=== PATIENT | male | born 1960 | race Caucasian/White ===

== ENCOUNTER 2020-10-17 01:09 | Day surgery (SDC) | payer BC, SELFPAY ==
[2020-10-03 15:53] VITALS: BMI 40.5
[2020-10-17 09:50] VITALS: BP 136/76; PULSE 61; RESP 20; TEMP 36.3; O2SAT 95
--- NOTE | 2020-10-17 09:56 | P.PNAN_ITS ---
Anes - Initial Pre Proc Eval Procedure: Operation Date: 10/17/20 10:45 Proposed Procedures p Esophagogastroduodenoscopy - Sagar Denise MD Date/Time: 10/17/20 09:56 Surgeon: Sagar Denise MD Pre Op Diagnosis: GERD, epigastric pain Patient Data Age: 60 Gender: M Height: 1.96 m Weight: 154 kg Last Vital Signs Temp 36.3 C L 10/17/20 09:50 Pulse 61 10/17/20 09:50 Resp 20 10/17/20 09:50 BP 136/76 10/17/20 09:50 Pulse Ox 95 10/17/20 09:50 Allergies Allergy/AdvReac Type Severity Reaction Status Date / Time No Known Allergies Allergy Unknown Verified 10/17/20 09:37 Home Medications Medication Instructions Recorded Confirmed Type aspirin 325 mg PO DAILY 10/03/20 10/17/20 History esomeprazole magnesium 20 mg PO DAILY 10/03/20 10/17/20 History famotidine 10 mg PO DAILY PRN 10/03/20 10/17/20 History Patient hx anesthesia problems: none Family hx anesthesia problems: none [facility] Past Medical History Medical History (Updated 10/17/20 @ 09:56 by Osiel Larsen MD) Atrial fibrillation AMBROCIO (obstructive sleep apnea) Family History Family History Grandparent Hypertension Cerebrovascular accident Father Malignant neoplasm of prostate Other Family history of cardiovascular disease Social History Social History Years smoked: 5 Smoking status: Former smoker Tobacco type: pipe Alcohol intake: current Alcohol use details: 6 DOUBLES ONCE A WEEK- PAST 3 MONTHS BACKING OFF DUE TO STOMACH ISSUES Substance use: never Substance use type: does not use Living arrangements: with family Spiritual care concerns: No Anes - Eval Final PreProcedure Day of Procedure 10/17/20 09:56 Patient weight: morbidly obese Heart: irregular rhythm Lungs: clear to auscultation Airway: Mallampati scale class II and special considerations poor dentition Neurological: alert and oriented Last oral intake: >/= 8 hours ASA classification: III Emergent: no Anesthetic plan: proceed Anesthesia type and monitoring: general GIVS and standard monitoring Informed Consent: The patient's anesthetic plan and its attendant risks and benefits were discussed with the patient/family/POA. Questions were solicited and answers provided to the satisfaction of the patient/family/POA.
[2020-10-17] MEDS: LACTATED RINGERS 1,000 ML 150 ML IV CONT (09:58)
--- NOTE | 2020-10-17 10:27 | PM.HPGS ---
History of Present Illness History of Present Illness Consent: Risks, benefits, and alternatives have been discussed and questions answered. Patient agrees to proceed with procedure. Chief complaint: GERD, epigastric pain Narrative: Sean Davis is a 60 year old male with gerd using nexium for 10 years but last 6 weeks with more heartburn, had EGD about 20 years ago. Review of Systems Constitutional: Constitutional: Denies headache(s) and Denies weakness Eyes: Eyes: Denies blurry vision ENT: Reports Normal hearing present, Denies headache(s) and Denies neck pain Cardiovascular: Cardiovascular: Denies chest pain and Denies dyspnea Respiratory: Respiratory: Denies dyspnea Gastrointestinal: Gastrointestinal: Reports no additional gastrointestinal complaints Genitourinary: Genitourinary: Denies dysuria Musculoskeletal: Musculoskeletal: Denies neck pain Integumentary/Breasts: Skin/Breast: Denies dry skin Neurologic: Reports Normal hearing present, Denies headache(s) and Denies weakness Psychiatric: Psychiatric: Denies anxiety Endocrine: Endocrine: Denies change in body appearance Hematologic/Lymphatic: Hematologic/Lymphatic: Denies easy bleeding Allergic/Immunologic: Allergic/Immunologic: Denies urticaria PMFSH Past Medical History Medical History (Updated 10/17/20 @ 09:56 by Osiel Larsen MD) Atrial fibrillation AMBROCIO (obstructive sleep apnea) Family History Family History Grandparent Hypertension Cerebrovascular accident Father Malignant neoplasm of prostate Other Family history of cardiovascular disease Social History Social History Years smoked: 5 Smoking status: Former smoker Tobacco type: pipe Alcohol intake: current Alcohol use details: 6 DOUBLES ONCE A WEEK- PAST 3 MONTHS BACKING OFF DUE TO STOMACH ISSUES Substance use: never Substance use type: does not use Living arrangements: with family Spiritual care concerns: No Meds Home Medications and Allergies Home Medications Medication Instructions Recorded Confirmed Type aspirin 325 mg PO DAILY 10/03/20 10/17/20 History esomeprazole magnesium 20 mg PO DAILY 10/03/20 10/17/20 History famotidine 10 mg PO DAILY PRN 10/03/20 10/17/20 History Allergies Allergy/AdvReac Type Severity Reaction Status Date / Time No Known Allergies Allergy Unknown Verified 10/17/20 09:37 Vital Signs Vital Signs - 24 hr 10/17/20 09:50 Temperature 97.4 F L Pulse Rate 61 Respiratory Rate 20 Blood Pressure 136/76 Pulse Oximetry 95 Exam Const: General: comfortable and no acute distress HENMT: General nose exam: Normal nares present Eyes: General: appearance normal, both eyes and all related structures Neck: Neck: no JVD Resp: Auscultation: clear to auscultation bilaterally Cardio: Rate: regular rate Rhythm: regular rhythm GI: Inspection: non-distended GI Palp: Yes Soft to palpation Skin: General skin exam: normal color Neuro: General: gait normal Speech: normal speech Extrem: General: normal to inspection Psych: Mental Status: mental status grossly normal Assessment and Plan Assessment and plan (1) GERD (gastroesophageal reflux disease): Code(s): K21.9 - Gastro-esophageal reflux disease without esophagitis Status: Acute Assessment and Plan: egd with bx
[2020-10-17] MEDS: BENZOCAINE (*SP) 60 ML SPRAY CAN (HURRICAINE) 1 SPRAY MUCOUS MEM (10:31)
[2020-10-17 10:44] VITALS: BP 133/84; PULSE 66; RESP 22; O2SAT 97
[2020-10-17 10:54] VITALS: BP 119/83; PULSE 62; RESP 17; O2SAT 96
[2020-10-17 11:04] VITALS: BP 126/93; PULSE 65; RESP 17; O2SAT 98
== END 2020-10-17 11:21 | disposition home or self-care (01) ==
PROVIDERS: PCP Family Medicine; Visit Provider Internal Medicine Gastroenterology
PROC: 0DJ08ZZ Inspection of Upper Intestinal Tract, Via Natural or Artificial Opening Endoscopic (ICD-10-PCS; CPT 43235; principal; 2020-10-17 10:45)
DX: K21.9 Gastro-esophageal reflux disease without esophagitis (principal); K29.50 Unspecified chronic gastritis without bleeding; I48.91 Unspecified atrial fibrillation; G47.33 Obstructive sleep apnea (adult) (pediatric); Z79.82 Long term (current) use of aspirin; E66.01 Morbid (severe) obesity due to excess calories; Z68.41 Body mass index [BMI] 40.0-44.9, adult
CPT/HCPCS: 43239; 88305; J2704; J7120

== ENCOUNTER 2022-04-19 08:42 | Emergency (ER) | payer BC, SELFPAY ==
[2022-04-19 08:54] VITALS: BP 151/86; PULSE 72; RESP 16; TEMP 36.8; O2SAT 99
--- NOTE | 2022-04-19 09:14 | ED.GENADULT ---
HPI - General Adult General Chief complaint: Extremity Injury, Lower Stated complaint: right foot 3rd digit toe Time Seen by Provider: 04/19/22 09:14 Source: patient, RN notes reviewed and old records reviewed Mode of arrival: ambulatory Limitations: no limitations History of Present Illness HPI narrative: 61-year-old male who presents to [facility] with complaints of wound to his right distal 3rd toe with nail removed by last night. Patient reports that he thins he initially stubbed his toe on Saturday and he reports that he has had problems with fungus on his toenails and uses OTC topical medication on his toenails. Patient does reports that he has neuropathy in his feet, patient is not on any diabetic medications states that his last HGBA!C was 6.4 i 2018 has not had it rechecked since. Patient has been soaking his right 3rd toe in Betadine and peroxide applying Aquaphor and applying band-aide. complaint: Wound right 3rd toe Onset (ago): day(s) ( 4th day of symptoms) Location: right and lower extremity (3rd toe right foot distally) Severity scale (1-10): 2 Quality: aching Treatments prior to arrival: other (cleaning with peroxide and application of betadine) Related Data Home Medications Medication Instructions Recorded Confirmed aspirin 325 mg tablet 325 mg PO DAILY 10/03/20 04/19/22 esomeprazole magnesium 20 mg 20 mg PO DAILY 10/03/20 04/19/22 tablet,delayed release Allergies Allergy/AdvReac Type Severity Reaction Status Date / Time No Known Allergies Allergy Unknown Verified 04/19/22 09:00 Review of Systems Review of Systems: CONSTITUTIONAL: Denies fever, chills, or sweats. CARDIOVASCULAR: Denies chest pain, palpitations, or edema. RESPIRATORY: Denies cough or dyspnea. GASTROINTESTINAL: Denies abdominal pain, nausea, vomiting SKIN: Reports redness and swelling right 3rd toe nail bed. Denies purulent drainage, but drained some bloody looking drainage yesterday with foul odor, no active bleeding wound bed moist in appearance and red. MUSCULOSKELETAL: Denies myalgia. NEUROLOGIC: Denies headache, numbness reports some peripheral neuropathy All systems reviewed & are unremarkable except as noted in HPI and below [facility] Past Medical History Medical History (Updated 04/20/22 @ 09:58 by Siomara Marie NP) Atrial fibrillation Body mass index (BMI) of 40.1 to 44.9 in adult Detached retina AMBROCIO (obstructive sleep apnea) Prediabetes Surgical History Surgical History H/O cataract extraction Family History Family History Grandparent Hypertension Cerebrovascular accident Father Malignant neoplasm of prostate Heart disease Arthritis Hernia Mother Diabetes mellitus Sibling No problems noted. Other Family history of cardiovascular disease Social History Social History Years smoked: 5 Smoking status: Former smoker Tobacco type: pipe Second hand tobacco smoke exposure: Yes Alcohol intake: current Alcohol use details: 6 DOUBLES ONCE A WEEK- PAST 3 MONTHS BACKING OFF DUE TO STOMACH ISSUES Substance use: never Substance use type: does not use Living arrangements: with family Occupation/Education: occupation Additional occupation/education comments: driver salesman Gender identity (if verbalized by the patient): Male Spiritual care concerns: No Comments At time of signature, agree with nursing past medical, surgical, social and family history. There is no relevant family history pertinent to the presenting complaint Exam Narrative: GENERAL: Well-appearing, well-nourished, and in no acute distress. HEAD: Normocephalic, atraumatic. EYES: PERRLA and EOMI. ENT: Nares clear, no rhinorrhea or epistaxis. Mucous membranes moist.TM's normal with good light reflex, throat pink with no lesions or swelling. NE
== END 2022-04-19 09:53 | disposition home or self-care (01) ==
PROVIDERS: Emergency Provider Registered Nurse; PCP Family Medicine
DX: S91.204A Unspecified open wound of right lesser toe(s) with damage to nail, initial encounter (principal); X58.XXXA Exposure to other specified factors, initial encounter; Z87.891 Personal history of nicotine dependence; I48.91 Unspecified atrial fibrillation; R73.03 Prediabetes; G62.9 Polyneuropathy, unspecified; Z79.82 Long term (current) use of aspirin
CPT/HCPCS: 99213; G0463

== ENCOUNTER 2024-08-12 15:44 | Emergency (ER) | payer SELFPAY ==
--- NOTE | 2024-08-12 15:45 | ED_ITS ---
HPI - Skin/Abscess/Foreign Bdy General Chief complaint: Skin/Abscess/Foreign Body Stated complaint: bit by a tick Time Seen by Provider: 08/12/24 15:45 Source: patient Mode of arrival: ambulatory Limitations: no limitations History of Present Illness HPI narrative: Martin is a 64-year-old male patient presenting to the clinic today with complaints of a tick bite. He reports he pulled a tick off the top of his left foot that was on there for less than 24 hours- 1.5 weeks ago. Has a target like lesion to the dorsal left foot. Reports that the area is painful and itching. No fever, chills, body aches, or joint pain. Has been taking Benadryl for the itching. He is not a diabetic. Related Data Home Medications ?Medication ?Instructions ?Recorded ?Confirmed ?Last Taken ?Type aspirin 325 mg tablet 325 mg PO DAILY 10/03/20 06/23/24 10/16/20 07:00 History esomeprazole magnesium 20 mg 20 mg PO DAILY 10/03/20 06/23/24 Unknown History tablet,delayed release Allergies Allergy/AdvReac Type Severity Reaction Status Date / Time No Known Allergies Allergy Unknown Verified 08/12/24 16:02 Review of Systems Review of Systems: Pertinent positives per HPI. Patient denies any fever, chills, headache, visual changes, dizziness, cough, runny nose, sore throat, shortness of breath, chest pain, palpitations, nausea, vomiting, diarrhea, constipation, abdominal pain, or any urinary issues. [facility] Past Medical History Medical History Prediabetes Detached retina Body mass index (BMI) of 40.1 to 44.9 in adult AMBROCIO (obstructive sleep apnea) Atrial fibrillation Surgical History Surgical History H/O cataract extraction Family History Family History Grandparent Hypertension Cerebrovascular accident Father Malignant neoplasm of prostate Heart disease Arthritis Hernia Mother Diabetes mellitus Sibling No problems noted. 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 There is no relevant family history pertinent to the patient complaint. Exam Narrative: General: Well-developed, well nourished, in no apparent distress Head: Normocephalic, atraumatic. Cardio: Regular rate and rhythm, s1 and s2 normal, no murmur appreciated. Resp: Clear to auscultation bilaterally, no rhonchi, rales, wheezing or rubs. Integumentary: [place], warm, and dry, target like lesion to the top of the left foot- area of induration measuring approx 1x1cm with scabbed top, redness extended out 9x7cm, mild erythema, very mild tenderness. Course Course Emergency Course: Portions of this record may have been created with voice recognition software. Level of Care: Express Care Visit Vital Signs Vital signs: Vital Signs Temperature 36.7 C 08/12/24 15:53 Pulse Rate 66 08/12/24 15:53 Respiratory Rate 18 08/12/24 15:53 Blood Pressure 127/87 08/12/24 15:53 Pulse Oximetry 97 08/12/24 15:53 Oxygen Delivery Room Air 08/12/24 15:53 Temperature 36.7 C 08/12/24 15:53 Pulse Rate 66 08/12/24 15:53 Respiratory Rate 18 08/12/24 15:53 Blood Pressure 127/87 08/12/24 15:53 Pulse Oximetry 97 08/12/24 15:53 Oxygen Delivery Room Air 08/12/24 15:53 Vital signs reviewed MDM - Skin/Abscess/Foreign Bdy MDM Narrative Medical decision making narrative: At the time of visit patient is resting comfortably on the exam table. Patient appears to be nontoxic. Plan: I suspect patient has infected tick bite to the left foot. Prescription for doxycycline was sent to the pharmacy. Supportive measures were discussed with the patient and they voiced understanding discharge instructions and agrees to treatment plan. Return precautions reviewed Differential Diagnosis Differential diagnosis: Likely abscess of skin or subcutaneous tissue, viral exanthem, dermatophytosis, urticaria, herpes zoster, allergic reaction to drug, cellulitis, eczema, insect bites, impetigo and contact dermatitis Discharge Plan Discharge Clinical Impression: Infected tick bite Qualifiers: Encounter type: initial encounter Qualified Code(s): W57.XXXA - Bitten or stung by nonvenomous insect and other nonvenomous arthropods, initial encounter Patient Disposition: Home Condition: Stable Instructions: Antibiotic Form, Insect Bite or Sting (ED), Tick Bite (ED) Additional Instructions: Take doxycycline as prescribed Increase fluids and stay well hydrated May take Tylenol/Motrin as needed for pain Avoid scratching as this can cause a secondary infection. May take benadryl 25-50mg every 6 hours as needed for itching. Follow up with your PCP in 3-5 days if symptoms persist or sooner if they worsen Go to the Emergency Room if symptoms worsen- fever, rash spreading with treatment, fatigue, body aches, joint pain, shortness of breath, or chest pain Patient Language: [place] Prescriptions: New doxycycline monohydrate 100 mg capsule 100 mg PO BID 7 Days Qty: 14 0RF No Action aspirin 325 mg Tablet 325 mg PO DAILY esomeprazole magnesium 20 mg Tablet,Delayed Release (Dr/Ec) 20 mg PO DAILY Follow-up/Referrals: Ricardo Perez MD [Primary Care Provider] - Time of Disposition: 16:03 Quality NIHSS Nursing Documentation ED NIHSS nursing documentation: reviewed/agree
[2024-08-12 15:53] VITALS: BP 127/87; PULSE 66; RESP 18; TEMP 36.7; O2SAT 97
== END 2024-08-12 16:11 | disposition home or self-care (01) ==
PROVIDERS: Emergency Provider Nurse Practitioner Family; PCP Family Medicine
DX: S90.862A Insect bite (nonvenomous), left foot, initial encounter (principal); L08.9 Local infection of the skin and subcutaneous tissue, unspecified; W57.XXXA Bitten or stung by nonvenomous insect and other nonvenomous arthropods, initial encounter; Z87.891 Personal history of nicotine dependence; I48.91 Unspecified atrial fibrillation; R73.03 Prediabetes; Z79.82 Long term (current) use of aspirin
CPT/HCPCS: 99213; G0463